=== PATIENT | male | born 1955 | race Caucasian/White ===

== ENCOUNTER 2020-08-16 08:26 | Outpatient (CLI) | payer MEDICARE, BC, OTHER | END 2020-08-16 08:27 | disposition home or self-care (01) | LOC: CSHULT 08:26 | PROVIDERS: ATTEND Student in an Organized Health Care Education/Training Program | DX: Z13.6 Encounter for screening for cardiovascular disorders (principal) | CPT/HCPCS: 76706 ==

== ENCOUNTER 2023-05-29 12:41 | Outpatient (CLI) | payer OTHER | END 2023-05-29 12:42 | disposition home or self-care (01) | LOC: CSHCP 12:41 | PROVIDERS: ATTEND Chiropractor | DX: J44.9 Chronic obstructive pulmonary disease, unspecified (principal); J30.9 Allergic rhinitis, unspecified; I25.10 Atherosclerotic heart disease of native coronary artery without angina pectoris; R06.09 Other forms of dyspnea | CPT/HCPCS: 94664; 94726; 94760 ==